=== PATIENT | male | born 1965 | race Caucasian/White ===

== ENCOUNTER 2019-02-22 13:16 | Emergency (ER) | payer OTHER ==
[~2019-02-22] VITALS: Ht 182.9 cm; Wt 88.0 kg
--- NOTE | 2019-02-22 15:23 | NUR ---
Elvie shea in [facility] - 02/22/19 at 1524 by VERNON Vascular study of the right lower extremity is happening at bedside at this [facility].
--- NOTE | 2019-02-22 15:24 | NUR ---
Vascular study of the right lower extremity is happening at this time.
[2019-02-22] MEDS ORDERED: CEPH-572 PO (15:41)
[2019-02-22 15:49] VITALS: BP 114/81
== END 2019-02-22 15:49 | disposition home or self-care (01) ==
LOC: ER 13:17
DX: L03.115 Cellulitis of right lower limb (principal); Z88.2 Allergy status to sulfonamides
CPT/HCPCS: 73630; 93971; 99284